=== PATIENT | male | born 1950 | race Caucasian/White ===

== ENCOUNTER 2016-12-28 11:52 | Inpatient (IN) ==
--- NOTE | 2016-12-28 12:00 | History & Physical Report ---
Date of Encounter: 12/28/16 Time of Encounter: 12:00 24 Hour HP Update - Instructions Instructions: If the History and Physical is less than 30 days old and was completed prior to A.M. admission and or procedure and has NOT been updated on calendar day of procedure please complete this update prior to performing procedure. - Update Patient reports changes in Medical Condition: No Changes in examination, assessment, or condition: No Changes in Medication: No Preop tests/diagnostics Reviewed: Yes Surgery Remains Indicated: Yes Consent for Planned Operative Procedure(s) Verified: Yes - Pre-Operative Checklist Preoperative Checklist Indicated: No Prophylactic Antibiotic Ordered: Yes Is VTE Prophylaxis Indicated?: Yes
--- NOTE | 2016-12-28 12:03 | Discharge Summary ---
Date of Encounter: 12/29/16 Time of Encounter: 06:17 - Discharge Diagnosis (1) Arthritis of left knee Priority: Primary Status: Acute (2) Hypertension Priority: Secondary Status: Chronic Qualifiers: Hypertension type: unspecified secondary hypertension Qualified Code(s): I15.9 - Secondary hypertension, unspecified; I15 - Secondary hypertension (3) Obstructive sleep apnea Priority: Secondary Status: Chronic (4) Morbid obesity with BMI of 40.0-44.9, adult Priority: Secondary Status: Chronic - Discharge Medications Home Medications: Losartan Potassium [Cozaar] 100 mg PO DAILY 08/14/16 [History] Aspirin Enteric Coated [Aspirin EC] 325 mg PO BID #30 tablet. 12/28/16 [Rx] OxyCODONE Immed Rel [Roxicodone 5 MG] 5 - 10 mg PO Q6HR PRN #30 tablet 12/28/16 [Rx] Allergies/Adverse Reactions: Allergies metoprolol Allergy (Verified 12/28/16 13:07) Hivheidi Primary care physician: Skyler Stephens Jr, MD - Patient Status Disposition: Home, Self-Care Condition: Good Functional capacity at discharge: uses cane/walker Overall status at discharge: patient is progressing back to baseline - Discharge Instructions Follow Up With: Skyler Stephens Jr, MD [Primary Care Provider] - - Hospital Course Hospital course: Mr. Lay is a 66 year old male The patient had an uneventful postoperative course. They received antibiotics and physical therapy and were discharged in stable condition. There will follow -up in the office in 2 weeks. - Time Spent with Patient Total time spent providing and/or coordinating discharge services:
[2016-12-28] MEDS ORDERED: Lidocaine -MPF 1% 2 ML VIAL ID ONE (12:09)
[2016-12-28] MEDS ORDERED: CeFAZolin Pre 3,000 MG/100 ML 3,000 MG/100 ML BAG IVPB ONE (12:09)
[2016-12-28] MEDS ORDERED: Ringers Solution, Lactated 1,000 ML IVC SCH (12:15)
[2016-12-28] MEDS ORDERED: *HR* Midazolam HCl 2 MG/2 ML VIAL ONE (12:46)
[2016-12-28] MEDS ORDERED: Lidocaine -MPF 4% 5 ML AMPUL ONE (12:46)
[2016-12-28] MEDS ORDERED: *HR* FentaNYL (PF) 100 MCG/2 ML VIAL ONE ×2 (12:46→15:00)
[2016-12-28] MEDS ORDERED: Lidocaine -MPF 2% 2 ML VIAL ONE (12:46)
[2016-12-28] MEDS ORDERED: *HR* Succinylcholine 200 MG/10 ML VIAL IVP ONE (12:46)
[2016-12-28] MEDS ORDERED: *HR* Propofol 200 MG/20 ML VIAL IVP ONE (12:46)
[2016-12-28] MEDS ORDERED: Dexamethasone 4 MG/ML VIAL ONE (12:46)
[2016-12-28] MEDS ORDERED: Ondansetron 4 MG/2 ML VIAL ONE (12:46)
--- NOTE | 2016-12-28 12:55 | Anesthesia Evaluation PreOp ---
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 History: Other (chronic lbp) Other Medical History: Denies Any Significant HX Anesthesia History: No Prior Anesthetic Complications, Past Anesthesia (colon rsxn, l finger, knee arth) Alcohol Use: none Drug use: none Medications and Allergies Chondroitin Sulfate A [Chondroitin Sulfate] 500 mg PO DAILY 08/14/16 [History] Clindamycin [Cleocin] 150 mg PO Q6HR #8 capsule 08/14/16 [Rx] Hydrocodone/Acetaminophen [[place] 5-325 Tablet] 1 tab PO Q8H PRN #20 tab [Rx] Losartan Potassium [Cozaar] 100 mg PO DAILY 08/14/16 [History] Naproxen [Naprosyn] 500 mg PO BID 08/14/16 [History] Aspirin Enteric Coated [Aspirin EC] 325 mg PO BID #30 tablet. 12/28/16 [Rx] OxyCODONE Immed Rel [Roxicodone 5 MG] 5 - 10 mg PO Q6HR PRN #30 tablet 12/28/16 [Rx] Allergies metoprolol Allergy (Verified 08/14/16 07:21) Hives - Meds/Allergy Pre-op Review Medications Reviewed: Yes Allergies Reviewed: Yes Beta Blockers on Current Med List: No Anesthesia Results - Labs 12/08 h/h 14/41, plt 202, na 141, k 4,4, creat 0.81 - Imaging EKG: report reviewed (sr) Anesthesia Exam O2 Sat Height 1.8 m Height 1.8 m Weight 139.253 kg Weight 139.253 kg O2 Sat by Pulse Oximetry 95 Vital Signs Temp Pulse Resp BP Pulse Ox 98.0 F 60 18 140/88 95 12/28/16 12:11 12/28/16 12:11 12/28/16 12:11 12/28/16 12:11 12/28/16 12:11 Height: 1.8 Weight: 139 NPO (# of Hours): >8 - HEENT Pupil (Motor): Pupils equal, EOMI Mallampati: II Teeth: Edentulous Denture Type: Upper: Complete Oral Opening: Greater than 3 - 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
[2016-12-28] MEDS ORDERED: CloNIDine Patch 0.1 MG PATCH (WEEKLY) TD SCH (13:15)
[2016-12-28] MEDS ORDERED: Bupivacaine/Clonidine Syringe 1 EACH SYRINGE ONE (13:29)
[2016-12-28] MEDS ORDERED: *HR* Midazolam HCl 5 MG/5 ML VIAL IVP ONE (13:32)
--- NOTE | 2016-12-28 13:53 | Anesthesia Procedures ---
Date of Encounter: 12/28/16 Time of Encounter: 13:51 Procedures: Anesthesia - Nerve Block Procedure Date: 12/28/16 Time: 13:51 Allergies/Adv Reactions: metoprolol, cats Pre-op Diagnosis: L knee oa Surgical Procedure: l tka Checklist: Correct Patient Identifier, Correct procedure, History checked Correct side: Left Blood Thinner: No Monitor Applied: EKG, BP, Pulse Oximetry Supplemental Oxygen via Nasal Cannula (L/min): 2 Sedation: Versed (mg): 5 Indication: Post Op Analgesia (IPAC/30, AC/30) Pre-op Neuro Deficits: No Block Type: Other Catheter placed: No Sterile Technique: Yes Ultrasound used: Yes Anatomy identified: Yes Visual spread of Local: Yes Neuro Stimulation: No Blood on Needle Aspiration: No Smooth Injection of Local: Yes Pain with Injection of Local: No Prep: Chlorhexadine Needle: 21 x 100 mm Stimuplex Local: 0.25% Bupivicaine w/Clonidine 20 mcg/cc Volume (cc): 60 Number of Attempts: 1 Complications: None/effective block Vitals: see rn note
[2016-12-28] MEDS ORDERED: Ondansetron 4 MG/2 ML VIAL IVP ONE (14:35)
[2016-12-28] MEDS ORDERED: *HR* Promethazine 25 MG/ML VIAL IVP PRN (14:35)
[2016-12-28] MEDS ORDERED: *HR* HYDROmorphone 2 MG/ML SYRINGE ONE (15:15)
--- NOTE | 2016-12-28 15:21 | Orthopedic Operative Note ---
Date of procedure: 12/28/16 Pre-op diagnosis: Left knee arthritis Post-op diagnosis: same Procedure: Procedure: Left Total knee replacement Estimated blood loss: 500 cc Hardware: Arthrex Femur: 8 Tibia: 8 PS insert: 14 Patella: 40 Exam Under anesthesia: Full flexion full extension no instability Procedural Notes: Grade 4 arthritic changes all 3 compartments. Operative procedure: The patient was brought to the operating room and placed on the operating room table. After general anesthesia was administered the operative knee was examined. Findings were noted in the exam under anesthesia. The operative extremity was prepped and draped in sterile surgical fashion. The patient received IV antibiotics prior to skin incision. A standard midline incision was made centered over the patella. The incision was made through the skin and subcutaneous tissue. A medial parapatellar tendon approach was performed. Care was taken to preserve tissue along the medial aspect of the patella. And to protect the patella tendon. The deep MCL was released off the medial tibia. The infra patella fat pad was excised. Knee was brought into flexion. Patient noted to have grade 4 arthritic changes all 3 compartments. The entry hole was made for the intramedullary femoral guide. The guide was seated in 6 degrees of valgus. Anterior cut was made followed by the distal cut. The ACL the PCL the medial and the lateral menisci were excised. The tibia was subluxed forward. The entry hole was made for the intramedullary tibial guide. Guide was seated to resect 2 mm off the more abnormal side. The knee was brought into flexion the distal femur was sized to an 8. The femoral guide was seated, the anterior cut was made followed by the posterior condylar cut, followed by the chamfer cuts. The finishing guide was seated the box cut was made and the lug holes were drilled. The tibia was sized to an 8, the tibial tray was seated and prepared with the large drill followed by the fin cutter. Trial reduction revealed full extension no varus valgus instability with the appropriate 14 PS Tracey. The patella was everted and cut was made at the level of the insertion of the quadriceps and patella tendon. The patella was sized to a 40 the guide was seated and the lug holes are drilled. Trial reduction revealed excellent patella tracking. All trial components were removed all bony surfaces were irrigated. The tibia was cemented first followed by the femur. The 14 PS Tracey was seated and the knee was brought into full extension. The patella was cemented and held in place with the patellar holding clamp. After the cement had hardened, the knee sat for 2 minutes with a Betadine saline solution. The knee was then irrigated out with 2 L of pulse irrigation. The extensor mechanism was closed with #2 FiberWire suture and #2 PDS suture. The subcutaneous tissue was then irrigated and closed deep with #1 PDS suture superficially with 0 PDS suture and skin was closed with skin oli. The patient was then placed in a sterile dressing and a postoperative brace extubated and transferred to recovery room in stable condition. Anesthesia: GETA Surgeon: Rosalio Reyez Condition: stable Disposition: PACU
[2016-12-28] MEDS: *HR* HYDROmorphone (PF) 1 MG/ML SYRINGE IVP PRN ×4 (15:52→16:19)
[2016-12-28 15:56] LABS: Hematocrit 39.9 % (37.5-50.1); Hemoglobin 13.3 g/dL (12.9-16.9)
--- NOTE | 2016-12-28 16:43 | Anesthesia Evaluation Post Op ---
Date of Encounter: 12/28/16 Time of Encounter: 16:43 - Vital Signs Vital Signs: Vital Signs/O2 Sat/Glucose, Most Current Temp Pulse Resp BP Pulse Ox 12/28/16 16:39 76 12 142/93 100 12/28/16 16:29 97.5 F L 70 12 158/84 98 12/28/16 16:19 75 12 155/89 98 12/28/16 16:09 75 11 163/92 98 12/28/16 15:59 97.6 F 74 12 151/105 98 12/28/16 15:49 73 18 170/101 97 12/28/16 15:39 81 20 155/96 99 12/28/16 15:29 97.4 F L 73 20 124/79 99 12/28/16 13:56 77 144/77 98 12/28/16 13:35 70 153/107 100 - Lungs Lungs: Clear Ascult./Percussion - Airway Airway: Non-obstructed - Cardiovascular Regular Rate - Mental Status Mental Status: Alert & Oriented, Answers Appropriately - Pain Pain Scale: 3 - Nausea Vomiting Nausea Vomiting: Not Present - Hydration Hydration: Tolerates oral liquids - Discharge PostOp Status: Discharge Patient to home
[2016-12-28] MEDS ORDERED: *HR* OxyCODONE Immed Rel 5 MG TABLET PO PRN (17:16)
[2016-12-28] MEDS ORDERED: Sennosides 8.6 MG TABLET PO PRN (17:16)
[2016-12-28] MEDS ORDERED: Naloxone 0.4 MG/ML INJ IVP PRN (17:16)
[2016-12-28] MEDS ORDERED: Temazepam 15 MG CAPSULE PO PRN (17:16)
[2016-12-28] MEDS ORDERED: *HR* HYDROmorphone (PF) 1 MG/ML SYRINGE IVP PRN (17:16)
[2016-12-28] MEDS ORDERED: MOM Conc 10 ML UD.LIQ PO PRN (17:16)
[2016-12-28] MEDS ORDERED: Ondansetron 4 MG/2 ML VIAL IVP PRN (17:16)
[2016-12-28] MEDS: Ringers Solution, Lactated 1,000 ML IVC SCH (17:58)
[2016-12-28] MEDS ORDERED: *HR* Enoxaparin 30 MG/0.3 ML SYRINGE SQ SCH (18:00)
[2016-12-28] MEDS: *HR* Enoxaparin 30 MG/0.3 ML SYRINGE SQ SCH (18:05)
[2016-12-28] MEDS: ceFAZolin 3,000 MG in D5% in Water 100 ML IVPB SCH (20:26)
[2016-12-28] MEDS: *HR* OxyCODONE Immed Rel 5 MG TABLET PO PRN (22:37)
[2016-12-29] MEDS: *HR* OxyCODONE Immed Rel 5 MG TABLET PO PRN ×2 (02:34→06:52)
[2016-12-29] MEDS: Ringers Solution, Lactated 1,000 ML IVC SCH (02:35)
[2016-12-29] MEDS: ceFAZolin 3,000 MG in D5% in Water 100 ML IVPB SCH (05:07)
[2016-12-29] MEDS: *HR* Enoxaparin 30 MG/0.3 ML SYRINGE SQ SCH (05:20)
[2016-12-29 05:21] LABS: Hematocrit 36.7 % (37.5-50.1); Hemoglobin 12.5 g/dL (12.9-16.9)
[2016-12-29 05:44] LABS: BUN/Creatinine Ratio 12 (6-26); Blood Urea Nitrogen 10 mg/dL (8-26); Calcium 9.2 mg/dL (8.6-10.8); Carbon Dioxide 24 mEq/L (19-29); Chloride 102 mEq/L (98-109); Glucose 146 mg/dL (70-99); Osmolality,Calculated 286 (280-300); Potassium 4.6 mEq/L (3.5-4.5); Sodium 137 mEq/L (136-145); eGFR For African Americans > 60 (> 60); eGFR For Non-African Americans > 60 (> 60)
--- NOTE | 2016-12-29 06:18 | Orthopedics Progress Note ---
Date of Encounter: 12/29/16 Time of Encounter: 06:18 - Assessment and Plan (1) Arthritis of left knee Current Visit: Yes Status: Acute (2) Hypertension Current Visit: Yes Status: Chronic Qualifiers: Hypertension type: unspecified secondary hypertension Qualified Code(s): I15.9 - Secondary hypertension, unspecified; I15 - Secondary hypertension (3) Obstructive sleep apnea Current Visit: Yes Status: Chronic (4) Morbid obesity with BMI of 40.0-44.9, adult Current Visit: Yes Status: Chronic Subjective Interval history: Patient was seen this morning doing well without complaints. Afebrile vital signs stable. Operative extremity: Neurovascularly intact Dressing clean dry and intact Calves nontender Assessment and plan: Continue with postoperative care Hematocrit 36 discharged today Objective Vital signs: Vital Signs Temp Pulse Resp BP Pulse Ox 12/29/16 04:00 97.7 F 86 17 166/91 98 12/29/16 00:00 97.9 F 90 16 156/92 100 12/28/16 20:39 97.6 F 77 16 156/92 99 12/28/16 19:20 97.6 F 77 16 143/83 99 12/28/16 18:15 97.8 F 71 16 160/99 98 12/28/16 17:45 97.8 F 68 16 156/88 95 12/28/16 17:15 97.6 F 68 13 93 12/28/16 16:49 97.5 F L 60 12 153/89 99 12/28/16 16:40 13 143/93 99 12/28/16 16:39 76 12 142/93 100 12/28/16 16:29 97.5 F L 70 12 158/84 98 12/28/16 16:19 75 12 155/89 98 12/28/16 16:09 75 11 163/92 98 12/28/16 15:59 97.6 F 74 12 151/105 98 12/28/16 15:49 73 18 170/101 97 12/28/16 15:39 81 20 155/96 99 12/28/16 15:29 97.4 F L 73 20 124/79 99 12/28/16 13:56 77 144/77 98 12/28/16 13:35 70 153/107 100 12/28/16 12:11 98.0 F 60 18 140/88 95 Intake and Output 12/28/16 12/28/16 12/29/16 15:59 23:59 07:59 Intake Total 525 / 525 1950 / 1950 Output Total 500 / 500 350 / 350 1100 / 1100 Balance -500 / -500 175 / 175 850 / 850 Intake: IV Fluids 100 / 100 1000 / 1000 Lactated Ringers 1,000 ML 1000 / 1000 @ 75 mls/hr IVC .[id number] [facility] Rx#:[id number] Ancef 3,000 MG In 100 / 100 Dextrose 5% 100 ML @ 200 mls/hr IVPB Q8H [facility] Rx#: [id number] Oral 425 / 425 950 / 950 Output: Urine 350 / 350 1100 / 1100 Estimated Blood Loss 500 / 500 Other: # Voids 1 Weight 139.253 kg - Labs CBC & BMP: 12/29/16 05:01 12/29/16 05:01 Labs: Abnormal lab results Hgb 12.5 g/dL (12.9-16.9) L 12/29/16 05:01 Hct 36.7 % (37.5-50.1) L 12/29/16 05:01 Potassium 4.6 mEq/L (3.5-4.5) H 12/29/16 05:01 Glucose 146 mg/dL (70-99) H 12/29/16 05:01 - VTE Documentation of Mechanical Device: Venous foot pump, device Consult Discharge Plan - Plan Referrals: Skylre Stephens Jr, MD [Primary Care Provider] -
[2016-12-29 06:47] VITALS: BP 145/80
== END 2016-12-29 11:05 | disposition home or self-care (01) | DRG 470 ==
LOC: SAMDAY 11:52 → 3NENU 17:16
PROVIDERS: ADMIT Orthopaedic Surgery; ATTEND Orthopaedic Surgery